=== PATIENT | female | born 1980 | race Hispanic/Latino ===

== ENCOUNTER 2019-02-24 12:32 | Inpatient (IN) | payer SELFPAY ==
[2019-02-24 13:19] VITALS: BP 108/65; TEMP 98.6; BMI 27.1
[2019-02-24] MEDS ORDERED: Ondansetron PF 4 MG/2 ML Vial IVP PRN (13:38)
[2019-02-24] MEDS ORDERED: Butorphanol Tartrate 1 MG/ML VIAL SLOW IVP PRN (13:38)
[2019-02-24] MEDS ORDERED: Promethazine HCl 25 MG/ML VIAL IM PRN (13:38)
[2019-02-24] MEDS ORDERED: Misoprostol 200 MCG TAB PO SCH (13:45)
[2019-02-24] MEDS ORDERED: Lactated Ringer's 1,000 ML IV SCH (13:45)
[2019-02-24] MEDS ORDERED: Misoprostol 200 MCG TAB ONE (13:55)
[2019-02-24 14:58] LABS: Hemoglobin 13.4 g/dL (12.0-16.0); Mean Corpuscular HGB CONC 33.5 g/dL (32.0-36.0); Mean Corpuscular Hemoglobin 31.7 pg (27.0-31.0); Mean Corpuscular Volume 94.4 fL (78.0-98.0); Mean Platelet Volume 8.4 fL (7.4-10.4); Platelet Count 210 thou/uL (130-400); RBC Distribution Width 12.1 % (11.5-14.5); Red Blood Cell (RBC) Count 4.23 mill/uL (4.20-5.40); White Blood Cell (WBC) Count 13.8 thou/uL (4.8-10.8)
[2019-02-24] MEDS ORDERED: Oxytocin 10 UNITS/ML VIAL ONE (20:26)
[2019-02-24] MEDS: Lactated Ringer's 1,000 ML IV SCH (23:27)
[2019-02-24] MEDS: Misoprostol 200 MCG TAB VAG SCH (23:28)
--- NOTE | 2019-02-25 08:09 | DIS ---
DATE OF ADMISSION: 02/24/2019 DATE OF DISCHARGE: 02/24/2019 ADMITTING DIAGNOSIS: Intrauterine demise. DISCHARGE DIAGNOSIS: Intrauterine demise with estimated gestational age of 17 to 18 weeks. PROCEDURE PERFORMED: Second trimester medical-induced of intrauterine demise. HOSPITAL COURSE: The patient is a 38-year-old multiparous female, who presented after being evaluated by her primary OB, the nurse aerospace project engineer, Ms. Monae and being diagnosed with intrauterine demise reporting a femur length of 16 weeks. The patient presented, diagnosis was confirmed by bedside ultrasound and the patient was induced by Cytotec for delivery. The patient quickly went into labor and delivered a nonviable fetus that appeared to have been for several weeks as much of the form of the baby had become gelatinous and swollen and misshapen. Given the circumstances, the patient requested to be able to go home with her family. The patient was evaluated here for a couple of hours and continued to have good pain control. No evidence of infection and minimal bleeding. The patient was discharged to home. Ms. Monae her primary aerospace project engineer was present for the delivery. She will follow up with her as per the nurse aerospace project engineer request. Autopsy was declined. The patient requested that the fetus be buried with the communal burial here at the hospital with other demised fetuses under 20 weeks gestation. Of note, the weight of this baby was 240 g. The patient was discharged to home again with instructions to follow up with her primary OB, Ms. Monae. Job ID: [id number]
--- NOTE | 2019-02-25 08:30 | OP ---
DATE OF PROCEDURE: 02/24/2019 Delivery of a second trimester demise. The patient is a 38-year-old multiparous female who presented to Labor and Delivery today with a recent diagnosis of IUFD measuring on ultrasound with a 16 week femur length by her primary OB provider, Ms. Monae, a local lemon grower. Upon presentation, the demise was confirmed by bedside ultrasound. Ultrasound findings were consistent with a fetus that likely had 1-2 weeks ago at least. The patient underwent induction of labor with Cytotec and delivered what appears to be a male infant at 2224 hours on 02/24/2019. Apgars were 0. Weight 240 g. Fetus appeared to be very edematous with peeling skin. No tone and appears to be decomposing gelatinous soft tissue. There were no clearly discernible features to the face except for nostrils and the mouth. There were present 5 fingers and 5 toes and the body appeared to be intact externally with no evidence of body wall defects. Given the state of the fetus, the baby appeared to be clearly several weeks less than 20 weeks gestation. The mother has declined autopsy and has opted for communal burial provided by the hospital. Of note, the fetus delivered en caul with placenta and amniotic sac intact with fetus. Mother is stable in the room at the time of delivery. There is very minimal blood loss of an estimate of about 75-100 mL. Job ID: [id number]
== END 2019-02-24 23:57 | disposition home or self-care (01) | DRG 807 ==
LOC: L&D 12:32
PROVIDERS: ADMIT Obstetrics & Gynecology; ATTEND Obstetrics & Gynecology
PROC: 3E0P7VZ Introduction of Hormone into Female Reproductive, Via Natural or Artificial Opening (ICD-10-PCS; principal; 2019-02-24)
PROC: 10E0XZZ Delivery of Products of Conception, External Approach (ICD-10-PCS; 2019-02-24)
DX: O36.4XX0 Maternal care for intrauterine death, not applicable or unspecified (principal); Z37.1 Single stillbirth; Z3A.20 20 weeks gestation of pregnancy
CPT/HCPCS: 36415; 85027; 86850; 86900; 86901; J2590